=== PATIENT | female | born 2000 | race Hispanic/Latino ===

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

== ENCOUNTER 2018-09-27 20:20 | Emergency (ER) | payer OTHER ==
[~2018-09-27] VITALS: Ht 121.9 cm; Wt 50.0 kg
[~2018-09-27 20:20] MED LIST changes: +NEXIUM40 M1 PO
[2018-09-27] MEDS ORDERED: AMOXICILLIN500 MG PO (21:29)
[2018-09-27] MEDS ORDERED: GUAIASORB DM1 ML PO (21:29)
[2018-09-27 21:30] VITALS: BP 107/58
== END 2018-09-27 21:30 | disposition home or self-care (01) ==
LOC: ED 20:20
DX: H66.93 Otitis media, unspecified, bilateral (principal); J06.9 Acute upper respiratory infection, unspecified; R05 Cough; R50.9 Fever, unspecified

== ENCOUNTER 2018-10-27 15:13 | Emergency (ER) | payer OTHER ==
[~2018-10-27] VITALS: Ht 149.9 cm; Wt 66.8 kg
[~2018-10-27 15:13] MED LIST changes: +AMOXICILLIN500 MG PO; +GUAIASORB DM1 ML PO
[2018-10-27] MEDS ORDERED: AMOX/K CLAV875 M1 PO (15:52)
[2018-10-27] MEDS ORDERED: NO HOME MEDS (16:13)
[2018-10-27 16:50] VITALS: BP 120/61
== END 2018-10-27 16:50 | disposition home or self-care (01) | DRG 153 ==
LOC: ED 15:13
DX: J02.0 Streptococcal pharyngitis (principal)

== ENCOUNTER 2019-05-21 | Emergency (ER) | payer BC ==
[~2019-05-21] MED LIST changes: +AMOX/K CLAV875 M1 PO; +NO HOME MEDS
== END 2019-05-22 02:52 | disposition home or self-care (01) | DRG 605 ==
DX: S20.01XA Contusion of right breast, initial encounter (principal); W50.0XXA Accidental hit or strike by another person, initial encounter; Y93.89 Activity, other specified; Y92.009 Unspecified place in unspecified non-institutional (private) residence as the place of occurrence of the external cause

== ENCOUNTER 2022-10-16 17:23 | Emergency (ER) | payer OTHER ==
[~2022-10-16] VITALS: Ht 149.9 cm; Wt 62.0 kg
[2022-10-16 18:12] LABS: BASO% 0.2 % (0-3); EOS% 1.4 % (0-8); HEMATOCRIT 41.4 % (37.0-47.0); HEMOGLOBIN 13.8 g/dl (12.0-16.0); IMMATURE GRANULOCYTES 0.1 % (0.0-5.0); MEAN CELL VOLUME 89.8 fL CALC (80.0-100.0); MEAN CORPUSCULAR HGB 29.9 pG CALC (26.0-32.0); MEAN CORPUSCULAR HGB CONC 33.3 g/dL CAL (32.0-36.0); MONO% 6.7 % (2-13); NEUT# 5.16 thou/uL (2.00-7.15); NEUT% 59.5 % (42-76); RED BLOOD COUNT 4.61 mill/uL (4.20-5.60); RED CELL DISTRI WIDTH 11.7 % (11.5-15.5)
[2022-10-16 18:12] LABS: URINE BILIRUBIN - DIPSTICK NEGATIVE (NEGATIVE); URINE BLOOD DIPSTICK MODERATE (NEGATIVE); URINE COLOR YELLOW; URINE GLUCOSE - DIPSTICK NEGATIVE (NEGATIVE); URINE KETONE TRACE mg/dL (NEGATIVE); URINE PROTEIN - DIPSTICK 30 mg/dL (NEG-TRACE); URINE SPECIFIC GRAVITY 1.025; URINE UROBILINOGEN - DIPSTICK 0.2 E.U./dL (0.2)
[2022-10-16 18:14] LABS: URINE BACTERIA MANY hpf; URINE LEUK ESTERASE MODERATE (NEGATIVE); URINE NITRITE - DIPSTICK POSITIVE (Negative); URINE SQUAMOUS EPITHELIAL CELL MANY EPI/hpf (0-FEW)
[2022-10-16 18:23] LABS: ALBUMIN 4.6 g/dL (3.2-5.0); ALKALINE PHOSPHATASE 103 u/l (38-126); ANION GAP 14 (6-22 (CALC)); BILIRUBIN, TOTAL 0.4 mg/dL (0.02-1.3); BUN 9 mg/dL (7-17); BUN/CREATININE RATIO 11 (12-20 (CALC)); CARBON DIOXIDE 28 mmol/l (22-30); CHLORIDE 101 mmol/l (95-108); CREATININE 0.8 mg/dL (0.5-1.0); GFR FOR AFR.AMER. > 60 ML/MIN (>=60 (CALC)); GFR OTHER RACES > 60 ML/MIN (>=60 (CALC)); LIPASE 105 u/l (23-300); POTASSIUM 3.4 mmol/l (3.5-5.1); SGOT/AST 31 u/l (14-36); SODIUM 139 mmol/l (137-146); TOTAL PROTEIN 8.2 g/dL (6.3-8.2)
[2022-10-16 18:26] LABS: LYMPH% 32.1 % (15-41)
[2022-10-16] MEDS ORDERED: LOMOTIL2.5 MG PO (19:39)
[2022-10-16] MEDS ORDERED: CIPROFLOXACN500 MG PO (19:39)
[2022-10-16 19:54] VITALS: BP 105/68
[2022-10-16 20:00] VITALS: BP 102/73
[2022-10-16 20:15] VITALS: BP 106/67
[2022-10-16 20:30] VITALS: BP 99/65
[2022-10-16 20:45] VITALS: BP 109/82
== END 2022-10-16 20:56 | disposition home or self-care (01) | DRG 372 ==
LOC: ED 17:23
PROVIDERS: Family Medicine
DX: A04.4 Other intestinal Escherichia coli infections (principal); N39.0 Urinary tract infection, site not specified; B96.20 Unspecified Escherichia coli [E. coli] as the cause of diseases classified elsewhere
CPT/HCPCS: J1956